=== PATIENT | female | born 1975 | race Two or more races ===

== ENCOUNTER 2020-01-02 09:12 | Outpatient (CLI) | payer OTHER | END 2020-01-02 09:17 | disposition home or self-care (01) | LOC: LAB 09:12 | DX: I11.9 Hypertensive heart disease without heart failure (principal); E78.2 Mixed hyperlipidemia; R73.09 Other abnormal glucose; Z00.00 Encounter for general adult medical examination without abnormal findings ==

== ENCOUNTER 2020-01-15 12:56 | Outpatient (CLI) | payer OTHER | END 2020-01-15 13:02 | disposition home or self-care (01) | LOC: MAMO-SONO 12:56 | DX: Z12.31 Encounter for screening mammogram for malignant neoplasm of breast (principal); N60.11 Diffuse cystic mastopathy of right breast; N60.12 Diffuse cystic mastopathy of left breast ==

== ENCOUNTER 2020-08-13 09:29 | Outpatient (CLI) | payer OTHER | END 2020-08-13 09:32 | disposition home or self-care (01) | LOC: SONOGRAMA 09:29 → MAMO-SONO 10:00 | PROVIDERS: ATTEND Internal Medicine Cardiovascular Disease | DX: N39.0 Urinary tract infection, site not specified (principal) ==

== ENCOUNTER → 2020-08-13 10:23 | Outpatient (CLI) | payer OTHER | END | disposition home or self-care (01) | LOC: LAB 10:23 | DX: N39.0 Urinary tract infection, site not specified (principal) ==

== ENCOUNTER 2020-12-30 09:27 | Outpatient (CLI) | payer OTHER | END 2020-12-30 09:28 | disposition home or self-care (01) | LOC: LAB 09:27 | DX: Z00.01 Encounter for general adult medical examination with abnormal findings (principal) ==

== ENCOUNTER 2021-12-03 08:53 | Outpatient (CLI) | payer OTHER | END 2021-12-03 08:58 | disposition home or self-care (01) | LOC: LAB 08:53 | DX: E78.5 Hyperlipidemia, unspecified (principal); I10 Essential (primary) hypertension ==

== ENCOUNTER 2021-12-12 08:46 | Outpatient (CLI) | payer OTHER | END 2021-12-12 08:47 | disposition home or self-care (01) | LOC: LAB 08:46 | DX: D64.9 Anemia, unspecified (principal) ==

== ENCOUNTER 2022-02-18 08:13 | Outpatient (CLI) | payer OTHER | END 2022-02-18 08:25 | disposition home or self-care (01) | LOC: MAMO-SONO 08:13 | PROVIDERS: ATTEND Obstetrics & Gynecology | DX: N64.4 Mastodynia (principal) ==

== ENCOUNTER → 2023-05-18 09:21 | Outpatient (CLI) | payer OTHER ==
[2023-05-18 10:11] LABS: HEMATOCRIT 34.1 % (36.0-45.00); MEAN CELL VOLUME 73.6 fL (80.00-100.00); MEAN CORPUSCULAR HEMOGLOBIN 23.8 pg (27.00-32.0); MEAN CORPUSCULAR HGB CONC 32.4 g/dl (32.0-36.0); PLATELET COUNT 235 K/uL (150-450); RED BLOOD COUNT 4.63 M/uL (4.00-6.00); RED CELL DISTRIBUTION WIDTH 18.2 % (11.5-14.5)
[2023-05-18 10:17] LABS: URINE APPEARANCE Clear; URINE BILIRRUBIN Negative (NEGATIVE); URINE BLOOD Negative; URINE COLOR Yellow; URINE GLUCOSE Negative (NEGATIVE); URINE LEUKOCYTE Small; URINE NITRATE Negative; URINE PROTEIN Negative (NEGATIVE); URINE UROBILINOGEN 0.2 E.U./dl
[2023-05-18 10:18] LABS: URINE BACTERIA 1540.8 uL (0.0-1933); URINE EPITHELIAL CELLS 44.9 uL (0.0-38.8); URINE WBC 33.3 uL (0.0-23.2)
[2023-05-18 10:44] LABS: ALBUMIN 3.1 gm/dL (3.4-5.0); BILIRUBIN TOTAL 0.29 mg/dL (0.3-1.2); CALCIUM 8.6 mg/dL (8.5-10.1); CHOL HDL RATIO 2.4 (0-5.0); CREATININE SERUM 0.63 mg/dL (0.55-1.02); GFR 102.19; GLOBULINA 4.1 G/DL (2.4-3.5); T4 FREE 0.96 NG/ML (0.76-1.46); TOTAL PROTEIN 7.2 gm/dL (6.4-8.2); TSH 2.05 uIU/mL (0.358-3.74)
[2023-05-18 11:11] LABS: VITAMIN D3 25 HYDROXY 11.03 ng/ml (30-120)
== END | disposition home or self-care (01) ==
LOC: LAB 09:21
PROVIDERS: ATTEND Internal Medicine
DX: I10 Essential (primary) hypertension (principal); E78.5 Hyperlipidemia, unspecified; E55.9 Vitamin D deficiency, unspecified

== ENCOUNTER → 2023-06-09 | Outpatient (CLI) | payer OTHER | END | disposition home or self-care (01) | LOC: MAMO-SONO 11:00 | PROVIDERS: ATTEND Obstetrics & Gynecology | DX: D64.4 Congenital dyserythropoietic anemia (principal) ==

== ENCOUNTER 2024-09-27 08:28 | Outpatient (CLI) | payer OTHER ==
[2024-09-27 09:32] LABS: BASO % 0.6 % (0.1-1.2); EOS # 0.11 (0.04-0.54); EOS % 2.2 % (0.7-7.0); LYMPH # 1.31 (1.18-3.74); LYMPH % 26.8 % (19.3-53.1); MEAN PLATELET VOLUME 11.90 fl (9.4-12.4); MONO # 0.31 (0.24-0.82); MONO % 6.3 % (4.7-12.5); NEUT # 3.11 (1.56-6.13); NEUT % 63.7 % (34.0-71.1); RED CELL DISTRIBUTION WIDTH 17.9 % (11.6-14.4)
[2024-09-27 09:34] LABS: URINE APPEARANCE Clear; URINE BILIRRUBIN Negative (NEGATIVE); URINE BLOOD Negative; URINE COLOR Yellow; URINE GLUCOSE Negative (NEGATIVE); URINE KETONE Negative (NEGATIVE); URINE LEUKOCYTE Trace; URINE NITRATE Negative; URINE PROTEIN Negative (NEGATIVE); URINE UROBILINOGEN 0.2 E.U./dl
[2024-09-27 09:43] LABS: URINE BACTERIA 626.3 uL (0.0-1933); URINE EPITHELIAL CELLS 12.7 uL (0.0-38.8); URINE RBC 7.6 uL (0.0-20.8); URINE WBC 46.7 uL (0.0-23.2)
[2024-09-27 10:04] LABS: URINE CAST 0.29 uL (0.0-1.40)
[2024-09-27 11:01] LABS: ALT/SGPT 25 U/L (12-78); AST/SGOT 13 U/L (15-37); BILIRUBIN TOTAL 0.41 mg/dL (0.3-1.2); BUN CREA RATIO 17 (7.0-25.0); CHOL HDL RATIO 2.2 (0-5.0); CREATININE SERUM 0.58 mg/dL (0.55-1.02); FREE TRIODOTIRONINE 2.17 pg/ml (2.18-3.98); GFR 111.92; GLOBULINA 3.6 G/DL (2.4-3.5); GLUCOSE FASTING 89 mg/dL (65-100); HDL 70 mg/dl (40-60); LDL 77 mg/dl (0-130); OSMOLALITY SERUM 282 MOSM/KG (275-295); T4 FREE 1.01 NG/ML (0.76-1.46); T4 TOTAL 8.36 UG/DL (4.8-13.9); TSH 2.110 uIU/mL (0.358-3.74); VLDL 8 (0-39)
[2024-09-27 13:19] LABS: VITAMIN D3 25 HYDROXY 11.06 ng/ml (30-120)
[2024-09-28 09:08] LABS: ANTI THYROID PEROXIDASE 135.0 IU/mL (0-34); ESTRADIOL SERUM 41.7 pg/mL (.); HOMOCYSTEINE 9.3 umol/L (0.0-14.5); LEUTEINIZING HORMONE 3.4 mIU/mL (.); PROGESTERONA 0.4 ng/mL (.)
[2024-09-28 11:12] LABS: INSULIN LEVELS 18.8 uIU/mL (2.6-24.9)
[2024-09-29 19:11] LABS: T T 24.0 ng/dL (4-50); test free 0.6 pg/mL (0.0-4.2)
== END 2024-09-27 08:36 | disposition home or self-care (01) ==
LOC: LAB 08:28
PROVIDERS: ATTEND Obstetrics & Gynecology
DX: E78.2 Mixed hyperlipidemia (principal); E56.8 Deficiency of other vitamins; E55.9 Vitamin D deficiency, unspecified; E03.8 Other specified hypothyroidism; N95.1 Menopausal and female climacteric states; N95.8 Other specified menopausal and perimenopausal disorders; E16.1 Other hypoglycemia; E72.9 Disorder of amino-acid metabolism, unspecified; R79.82 Elevated C-reactive protein (CRP); Z13.1 Encounter for screening for diabetes mellitus; R30.0 Dysuria; D50.8 Other iron deficiency anemias; Z12.11 Encounter for screening for malignant neoplasm of colon; R74.8 Abnormal levels of other serum enzymes